=== PATIENT | female | born 1975 | race Caucasian/White ===

== ENCOUNTER 2021-09-23 16:29 | Observation (INO) | payer BC, MEDICAID ==
[2021-09-23] MEDS ORDERED: Morphine 10 MG/ML Syringe IM ONE (16:32)
[2021-09-23] MEDS ORDERED: Ondansetron 4 MG Tab.DIS PO ONE ×2 (16:32→20:27)
[2021-09-23 17:44] LABS: ANION GAP 7.2 meq/L (7-15); CHLORIDE,CL 106 mmol/L (98-107); ESTIMATED GFR 76 mL/min (>=60); SODIUM,NA 140 mmol/L (136-145)
[2021-09-23] MEDS ORDERED: Morphine 2 MG/ML SYRINGE IVPUSH ONE (19:49)
[2021-09-23] MEDS ORDERED: Sodium Chloride 0.9% 10 ML Syringe FLUSH PRN (19:49)
[2021-09-23] MEDS ORDERED: Acetaminophen 325 MG Tab PO PRN (22:09)
[2021-09-23] MEDS ORDERED: Ondansetron 4 MG/2 ML SDV IVPUSH PRN (22:12)
[2021-09-23] MEDS ORDERED: Morphine 2 MG/ML SYRINGE IVPUSH PRN (22:12)
[2021-09-23] MEDS ORDERED: Pantoprazole 40 MG Vial IVPUSH ONE (22:15)
[2021-09-23] MEDS ORDERED: Sodium Chloride 0.9% 1,000 ML IV SCH (22:30)
[2021-09-24] MEDS: oxyCODONE 5 MG Tab PO PRN ×5 (01:36→22:31)
[2021-09-24 07:00] LABS: ANION GAP 4.4 meq/L (7-15)
[2021-09-24] MEDS ORDERED: Sodium Chloride 0.9% 1,000 ML IV SCH (10:30)
[2021-09-24] MEDS ORDERED: Ondansetron 4 MG Tab.DIS PO PRN (20:10)
[2021-09-24] MEDS ORDERED: diphenhydrAMINE 25 MG Cap PO ONE (21:21)
[2021-09-24] MEDS ORDERED: diphenhydrAMINE 25 MG Cap PO PRN (21:23)
[2021-09-25] MEDS: oxyCODONE 5 MG Tab PO PRN ×3 (02:29→11:07)
[2021-09-25] MEDS ORDERED: Ketorolac 30 MG/ML SDV IM ONE (11:51)
== END 2021-09-25 12:33 | disposition home or self-care (01) ==
LOC: LL.ED 16:29 → LL.MS 19:20 → LL.ED 19:20
PROVIDERS: ADMIT Emergency Medicine; ATTEND Emergency Medicine
DX: S32.049A Unspecified fracture of fourth lumbar vertebra, initial encounter for closed fracture (principal); S30.0XXA Contusion of lower back and pelvis, initial encounter; Z88.8 Allergy status to other drugs, medicaments and biological substances; Z88.1 Allergy status to other antibiotic agents; V80.010A Animal-rider injured by fall from or being thrown from horse in noncollision accident, initial encounter
CPT/HCPCS: 36415; 72131; 72192; 80048; 80053; 81001; 82550; 83735; 85025; 96372; 96374; 96375; 96376; 97161-GP; 97165-GO; 99285; A9270-GY; C9113; G0378; J2270; J2405; J3490; J7030